=== PATIENT | female | born 1980 | race African-American/Black ===

== ENCOUNTER 2022-03-23 15:10 | Outpatient (CLI) | payer OTHER | END 2022-03-23 15:11 | disposition home or self-care (01) | LOC: SCSMRI 15:10 | PROVIDERS: ATTEND Orthopaedic Surgery Hand Surgery | DX: M47.22 Other spondylosis with radiculopathy, cervical region (principal); M50.11 Cervical disc disorder with radiculopathy, high cervical region; M48.02 Spinal stenosis, cervical region | CPT/HCPCS: 72141 ==

== ENCOUNTER 2022-09-25 16:40 | Outpatient (CLI) | payer OTHER ==
[2022-09-25 18:17] LABS: #Basophils 0.1 10x3/uL (0.0-0.2); #Eosinphils 0.5 10x3/uL (0.0-0.5); #Monocytes 0.4 10x3/uL (0.0-1.1); #Neutrophils 2.9 10x3/uL (1.5-8.4); %Eosinophils 8.5 % (0.0-6.0); %Lymphocytes 35.2 % (18.0-47.0); %Monocytes 6.3 % (0.0-10.0); %Neutrophils 48.7 % (40.0-75.0); Hemoglobin 13.1 g/dL (12.0-15.5); Mean Corpuscular HGB CONC 33.6 g/dL (32.0-36.0); Mean Corpuscular Volume 92.2 fl (81.6-98.3); Mean Platelet Volume 10.2 fl (7.4-10.4); Platelet Count 290 10x3/uL (150-450); RBC Distribution Width 12.9 % (11.5-14.5); Red Blood Cell (RBC) Count 4.23 10x6/uL (3.90-5.03); White Blood Cell (WBC) Count 5.9 10x3/uL (3.5-10.5)
[2022-09-25 18:19] LABS: BHCG - Serum Negative (NEGATIVE); Pregs Control Background? CLEAR/WHITE (CLR/WHITE); Pregs Control Bar Appear? YES (CONTROL BAR)
== END 2022-09-25 16:41 | disposition home or self-care (01) ==
LOC: LABBT 16:40
PROVIDERS: ATTEND Orthopaedic Surgery Hand Surgery
DX: Z01.812 Encounter for preprocedural laboratory examination (principal); S63.591A Other specified sprain of right wrist, initial encounter; M25.831 Other specified joint disorders, right wrist; S63.8X1A Sprain of other part of right wrist and hand, initial encounter
CPT/HCPCS: 84703; 85025

== ENCOUNTER 2022-09-26 05:57 | Day surgery (SDC) | payer OTHER ==
[2022-09-22 15:13] VITALS: BMI 29.1
[2022-09-26] MEDS ORDERED: Bacitracin Zinc Ointment 30 gm TUBE ONE (06:14)
[2022-09-26] MEDS ORDERED: Bupivacaine PF 0.5% 30 ML VIAL ONE ×2 (06:14→10:59)
[2022-09-26] MEDS ORDERED: Neomycin-Polymyxin 1 ML AMP ONE (06:14)
[2022-09-26] MEDS ORDERED: Thrombin 5000 UNITS/5 ML VIAL ONE (06:14)
[2022-09-26] MEDS ORDERED: EPINEPHrine 1 MG/ML AMP ONE (06:14)
[2022-09-26] MEDS ORDERED: fentaNYL 50 mcg/mL 1 mL Vial ONE ×2 (06:59→10:56)
[2022-09-26] MEDS ORDERED: Midazolam HCl 2 mg/2 ml Vial ONE (06:59)
[2022-09-26] MEDS ORDERED: Sodium Chloride 0.9% 100 ML ONE (07:08)
[2022-09-26] MEDS ORDERED: CEFAZOLIN 2 GM VIAL ONE (07:08)
[2022-09-26] MEDS ORDERED: Vancomycin 1 GM/200 ML (FROZEN) BAG ONE (07:08)
[2022-09-26] MEDS ORDERED: Ondansetron PF 4 MG/2 ML Vial ONE (07:21)
[2022-09-26] MEDS ORDERED: Lidocaine 1% PF 5 ML VIAL ONE (07:21)
[2022-09-26] MEDS ORDERED: PROPOFOL 200 MG/20 ML VIAL ONE (07:21)
[2022-09-26] MEDS ORDERED: Ketorolac Tromethamine 30 MG/ML VIAL ONE ×2 (07:21→12:03)
[2022-09-26] MEDS ORDERED: Dexamethasone 20 MG/5 ML VIAL ONE (07:21)
[2022-09-26] MEDS ORDERED: Bupivacaine 0.25% HCL 30 ML VIAL ONE (08:12)
== END 2022-09-26 13:46 | disposition home or self-care (01) ==
LOC: SDC 05:57
PROVIDERS: ATTEND Orthopaedic Surgery Hand Surgery
PROC: 0PBK0ZZ Excision of Right Ulna, Open Approach (ICD-10-PCS; principal; 2022-09-26)
PROC: 0RBN4ZZ Excision of Right Wrist Joint, Percutaneous Endoscopic Approach (ICD-10-PCS; principal; 2022-09-26)
DX: S63.591A Other specified sprain of right wrist, initial encounter (principal); M25.831 Other specified joint disorders, right wrist; M65.88 Other synovitis and tenosynovitis, other site; M94.231 Chondromalacia, right wrist; S63.8X1A Sprain of other part of right wrist and hand, initial encounter; M25.832 Other specified joint disorders, left wrist; J45.909 Unspecified asthma, uncomplicated; G43.909 Migraine, unspecified, not intractable, without status migrainosus; B00.9 Herpesviral infection, unspecified; M50.122 Cervical disc disorder at C5-C6 level with radiculopathy; Z86.14 Personal history of Methicillin resistant Staphylococcus aureus infection; Z79.899 Other long term (current) drug therapy; Z91.030 Bee allergy status; Z91.040 Latex allergy status; X50.0XXA Overexertion from strenuous movement or load, initial encounter
CPT/HCPCS: C1713; J0171; J1100; J1885; J2250; J2405; J2704; J3010; J3370-JW; J3490; S0020

== ENCOUNTER 2023-09-21 12:42 | Outpatient (CLI) | payer OTHER ==
[2023-09-21 13:43] LABS: #Basophils 0.05 10x3/uL (0.0-0.2); #Monocytes 0.31 10x3/uL (0.0-1.1); #Neutrophils 4.81 10x3/uL (1.5-8.4); %Basophils 0.7 % (0.0-2.0); %Eosinophils 5.2 % (0.0-6.0); %Lymphocytes 26.7 % (18.0-47.0); %Monocytes 4.1 % (0.0-10.0); Hematocrit 38.7 % (34.9-44.5); Hemoglobin 13.7 g/dL (12.0-15.5); Mean Corpuscular HGB CONC 35.4 g/dL (32.0-36.0); Mean Corpuscular Hemoglobin 32.7 pg (27.0-33.0); Mean Corpuscular Volume 92.4 fl (81.6-98.3); Mean Platelet Volume 9.9 fl (7.4-10.4); Platelet Count 304 10x3/uL (150-450); RBC Distribution Width 12.6 % (11.5-14.5); Red Blood Cell (RBC) Count 4.19 10x6/uL (3.90-5.03); White Blood Cell (WBC) Count 7.6 10x3/uL (3.5-10.5)
== END 2023-09-21 12:43 | disposition home or self-care (01) ==
LOC: LABBT 12:42
PROVIDERS: ATTEND Orthopaedic Surgery Hand Surgery
DX: Z01.812 Encounter for preprocedural laboratory examination (principal); S63.592A Other specified sprain of left wrist, initial encounter; M25.832 Other specified joint disorders, left wrist
CPT/HCPCS: 85025